=== PATIENT | female | born 1970 | race Caucasian/White ===

== ENCOUNTER 2018-04-22 12:45 | Emergency (ER) | payer OTHER | END 2018-04-22 13:43 | disposition home or self-care (01) | LOC: FTE 12:45 | DX: S61.216A Laceration without foreign body of right little finger without damage to nail, initial encounter (principal); W26.0XXA Contact with knife, initial encounter; Y92.89 Other specified places as the place of occurrence of the external cause | CPT/HCPCS: 12001; 99282-25 ==